=== PATIENT | male | born 1970 | race Caucasian/White ===

== ENCOUNTER 2023-09-04 08:04 | Emergency (ER) | payer BC, SELFPAY ==
[2023-09-04 09:30] LABS: Absolute Basophils 0.1 K/uL (0-0.5); Absolute Eosinophils 0.4 K/uL (0-0.5); Absolute Lymphocytes (CBC) 1.7 K/uL (0.7-4.9); Absolute Monocytes 0.7 K/uL (0.1-1.3); Absolute Neutrophil 4.8 K/uL (1.8-8.0); Basophils % 1.3 % (0-1.3); Eosinophils % 4.6 % (0-4.4); Hematocrit 43.2 % (39.6-49.0); Hemoglobin 14.6 g/dL (13.6-17.9); Lymphocytes % 22.5 % (15.3-44.8); MCH 30.9 pg (27.0-35.0); MCHC 33.8 g/dL (32.0-36.0); MCV 91.4 fL (80-100); MPV 8.4 fL (7.6-11.3); Monocytes % 8.9 % (3.3-12.3); Neutrophils % 62.7 % (41.7-73.7); Platelets 157 thou/uL (152-406); RBC Red Blood Cell Count 4.73 M/uL (4.33-5.43); Red Cell Distribution Width 14.1 % (12.1-15.2)
[2023-09-04 09:51] LABS: Albumin 3.2 g/dL (3.4-5.0); Albumin/Globulin Ratio 0.8 (1.1-1.8); Anion Gap 4.1 mEq/L (5.0-15.0); Bilirubin Direct 0.2 mg/dL (0-0.2); Bilirubin Indirect, Calculated 0.6 mg/dL (0.2-0.8); Bilirubin Total 0.8 mg/dL (0.2-1.0); Globulin 4.2 g/dL (2.3-3.5); Magnesium 1.9 mg/dL (1.6-2.4); Potassium 4.1 mEq/L (3.5-5.1); Protein, Total 7.4 g/dL (6.4-8.2); Troponin High Sensitivity 4.9 pg/mL (<58.9)
--- NOTE | 2023-09-04 10:46 | RAD REPORT ---
EXAM DESCRIPTION: RAD - Chest Pa And Lat (2 Views) - 09/04/2023 9:15 am CLINICAL HISTORY: CHEST PAIN COMPARISON: Chest Pa And Lat (2 Views) dated 11/25/2015; Chest Pa And Lat (2 Views) dated 11/24/2015; Chest Single View dated 11/23/2015 TECHNIQUE: PA and lateral views of the chest were obtained. FINDINGS: The lungs are clear with interval improvement of left basilar airspace opacity, and partia l improvement of basilar opacity on the right. Heart size is normal and central vasculature is within normal limits. No pneumothorax. Resolved left pleural effusion. Residual trace right pleural effusio n. No acute bony finding noted. IMPRESSION: Improving bilateral basilar findings as above.
--- NOTE | 2023-09-04 12:03 | RAD REPORT ---
EXAM DESCRIPTION: CT - Chest For Pe Angio - 09/04/2023 11:06 am CLINICAL HISTORY: CHEST PAIN COMPARISON: Chest For Pe Angio dated 11/23/2015 TECHNIQUE: Thin axial CT images of the chest were obtained following administration of 100 mL Isovue 370 IV contrast. Multiplanar reconstructions, and maximum intensity projection reconstructions were generated and reviewed. Exam utilizes a protocol for optimal evaluation of pulmonary arterial tree. All CT scans are performed using dose optimization technique as appropriate and may include automated exposure control or mA/KV adjustment according to patient size. FINDINGS: Pulmonary arteries are normal. No emboli or other suspicious finding. No acute or signific ant aorta findings. Bilateral basilar dependent subsegmental atelectatic changes. No mass or infiltrate in the lung paren chyma. No pleural thickening or pleural effusion. No pneumothorax. No abnormal mediastinal or hilar masses or lymphadenopathy seen. No chest wall mass or abnormal axill iary lymphadenopathy. IMPRESSION: No evidence of acute central pulmonary emboli. Negative CT scan of the chest for other significant findings.
--- NOTE | 2023-09-04 12:59 | EDPHYS ---
Physician Documentation [facility] Name: Jose Arthur Age: 52 yrs Sex: Male : 1970 Arrival Date: 09/04/2023 Time: 08:04 Bed 4 Private MD: ED Physician Charli Dalton HPI: 09/03 09:12 This 52 yrs old Male presents to ER via Ambulatory with complaints of Shortness Of ms3 Breath, Flank Pain. 09:12 52-year-old male with past medical history of hepatitis presents to the emergency ms3 department for right thoracic back pain that he rates a 6/10. Patient states the pain is worse with taking a deep breath. Patient states he previously had symptoms similar to this when he had pneumonia.. Historical: - Allergies: 08:18 Azithromycin; hb - Home Meds: 08:18 None [Active]; hb - PMHx: 08:18 Hepatitis; hb - PSHx: 08:18 Leg - Left; Ankle - Right; hb - Immunization history:: Adult Immunizations up to date. - Infectious Disease History:: Denies. - Social history:: Smoking status: Patient denies any tobacco usage or history of. ROS: 09:12 Constitutional: Negative for fever, and chills. Neck: Negative for injury, pain, and ms3 swelling, Cardiovascular: Negative for chest pain, and palpitations. 09:12 Respiratory: Positive for pleurisy, of the Right back, 09:12 Abdomen/GI: Negative for abdominal pain, nausea, vomiting, diarrhea, and constipation, ms3 MS/Extremity: Negative for injury and deformity, Skin: Negative for injury, rash, and discoloration, Exam: 09:12 Constitutional: This is a well developed, well nourished patient who is awake, alert, ms3 and in no acute distress. Head/Face: Normocephalic, atraumatic. Neck: Trachea midline, no cervical lymphadenopathy. Supple, full range of motion without nuchal rigidity, or vertebral point tenderness. No Meningismus. Chest/axilla: Normal chest wall appearance and motion. Nontender with no deformity. Cardiovascular: Regular rate and rhythm with a normal S1 and S2. No gallops, murmurs, or rubs. Normal PMI, no JVD. No pulse deficits. Respiratory: Lungs have equal breath sounds bilaterally, clear to auscultation and percussion. No rales, rhonchi or wheezes noted. No increased work of breathing, no retractions or nasal flaring. Abdomen/GI: Soft, non-tender, with normal bowel sounds. No distension or tympany. No guarding or rebound. No evidence of tenderness throughout. Skin: Warm, dry with normal turgor. Normal color with no rashes, no lesions, and no evidence of cellulitis. MS/ Extremity: Pulses equal, no cyanosis. Neurovascular intact. Full, normal range of motion. Neuro: Awake and alert, GCS 15, oriented to person, place, time, and situation. Cranial nerves II-XII grossly intact. Motor strength 5/5 in all extremities. Sensory grossly intact. Cerebellar exam normal. Normal gait. 09:18 ECG was reviewed by the Attending Physician. ms3 Vital Signs: 08:16 BP 146 / 95; Pulse 69; Resp 17; Temp 97.4(TE); Pulse Ox 96% on R/A; Weight 163.29 kg; hb Height 6 ft. 2 in. ; Pain 6/10; 09:07 BP 119 / 76; Pulse 67; Resp 18; Pulse Ox 97% on R/A; ld2 10:22 BP 114 / 77; Pulse 66; Resp 18; Pulse Ox 95% on R/A; ph 12:00 BP 118 / 78; Pulse 68; Resp 18; Temp 97.9; Pulse Ox 98% on R/A; ph 13:17 BP 115 / 72; Pulse 68; Resp 18; Temp 97.9; Pulse Ox 99% on R/A; ph 08:16 Body Mass Index 46.22 (163.29 kg, 187.96 cm) hb 08:16 Pain Scale: Adult hb [place]ala Coma Score: 09:07 Eye Response: spontaneous(4). Motor Response: obeys commands(6). Verbal Response: ld2 oriented(5). Total: 15. MDM: 08:35 Patient medically screened. ms3 09:12 Differential diagnosis: pneumonia, Pneumothorax Pulmonary Embolism. ms3 15:24 Data reviewed: vital signs, nurses notes, lab test result(s), EKG, radiologic studies, ms3 and as a result, I will discharge patient. Independent interpretation of the following test(s) in the Emergency Department EKG: See my EKG interpretation above property assessment monitor: rate is 70 beats/min, Rhythm is normal sinus rhythm, regular, with no ectopy, Interpretation: normal rate, normal rhythm. Counseling: I had a detailed discussion with the patient and/or guardian regarding the historical points, exam findings, and any diagnostic results supporting the discharge/admit diagnosis, lab results, radiology results, the need for outpatient follow up, to return to the emergency department if symptoms worsen or persist or if there are any questions or concerns that arise at home. ED course: Discussed labs, imaging with patient. Patient to follow-up with primary care physician in 2 to 3 days. Patient understands and agrees with plan. All questions were answered. Return precautions discussed include worsening symptoms, or any other concerns. On reevaluation patient is alert and oriented x 4, no apparent distress, nontoxic-appearing, ambulatory in the emergency department, speaking full sentences. 09/03 08:35 Order name: Basic Metabolic Panel; Complete Time: 10:21 ms3 09/03 08:35 Order name: CBC with Diff; Complete Time: 10:21 ms3 09/03 08:35 Order name: D-Dimer; Complete Time: 10:21 ms3 09/03 08:35 Order name: LFT's; Complete Time: 10:21 ms3 09/03 08:35 Order name: Magnesium; Complete Time: 10:21 ms3 09/03 08:35 Order name: Troponin HS; Complete Time: 10:21 ms3 09/03 09:34 Order name: Protime (+INR) EDMS 09/03 08:35 Order name: Chest Pa And Lat (2 Views) XRAY; Complete Time: 12:21 ms3 09/03 10:22 Order name: CT Chest For PE Angio; Complete Time: 12:21 ms3 09/03 08:35 Order name: Cardiac monitoring; Complete Time: 09:03 ms3 09/03 08:35 Order name: EKG - Nurse/Tech; Complete Time: 09:03 ms3 09/03 08:35 Order name: IV Saline Lock; Complete Time: 09:03 ms3 09/03 08:35 Order name: Labs collected and sent; Complete Time: 09:03 ms3 09/03 08:35 Order name: O2 Per Protocol; Complete Time: 09:03 ms3 09/03 08:35 Order name: O2 Sat Monitoring; Complete Time: 09:03 ms3 09/03 09:12 Order name: Labs - recollect needed: recollect all tubes; Complete Time: 09:25 bd EC:18 Rate is 66 beats/min. Rhythm is regular. QRS [place] is Normal. PA interval is normal. QRS ms3 interval is normal. QT interval is normal. Clinical impression: Normal ECG. Reviewed by me. Administered Medications: No medications were administered Disposition Summary: 09/04/23 12:58 Discharge Ordered Notes: Location: Home ms3 Condition: Stable ms3 Diagnosis - back pain ms3 Followup: ms3 - With: Sathya Figueroa DO - When: 2 - 3 days - Reason: Recheck today's complaints Discharge Instructions: - Discharge Summary Sheet ms3 - Acute Back Pain, Adult ms3 Forms: - Medication Reconciliation Form ms3 - Antibiotic Education ms3 - Prescription Opioid Use ms3 - Patient Portal Instructions ms3 - Leadership Thank You Letter ms3 Signatures: Dispatcher [employer] EDMS Zahra Morocho Heather, RN RN Charli Dalton DO DO ms3 Corrections: (The following items were deleted from the chart) 08:20 08:18 PSHx: Ankle - Right; hb hb 08:36 08:36 BASIC METABOLIC PANEL+C.LAB.BRZ ordered. EDMS EDMS 08:36 08:36 CBC+H.LAB.BRZ ordered. EDMS EDMS 08:36 08:36 D-DIMER+COAG.LAB.BRZ ordered. EDMS EDMS 08:36 08:36 HEPATIC FUNCTION+C.LAB.BRZ ordered. EDMS EDMS 08:36 08:36 MAGNESIUM+C.LAB.BRZ ordered. EDMS EDMS 08:36 08:36 Troponin High Sensitivity+C.LAB.BRZ ordered. EDMS EDMS 08:36 08:36 Chest Pa And Lat (2 Views)+RAD.RAD.BRZ ordered. EDMS EDMS 09:32 08:36 PROTIME (+INR)+COAG.LAB.BRZ ordered. EDMS EDMS
--- NOTE | 2023-09-04 12:59 | ER ---
Nurse's Notes [facility] Name: Jose Arthur Age: 52 yrs Sex: Male : 1970 Arrival Date: 09/04/2023 Time: 08:04 Bed 4 Private MD: Diagnosis: back pain Presentation: 09/03 08:16 Chief complaint: SOB and pain with breathing x 1 week. Denies cough/fever. Coronavirus hb screen: Client presents with at least one sign or symptom that may indicate coronavirus-19. Provider contacted for isolation considerations. Ebola Screen: No symptoms or risks identified at this time. Initial Sepsis Screen: Does the patient meet any 2 criteria? No. Patient's initial sepsis screen is negative. Does the patient have a suspected source of infection? No. Patient's initial sepsis screen is negative. Risk Assessment: Do you want to hurt yourself or someone else? Patient reports no desire to harm self or others. Onset of symptoms was August 28, 2023. 08:16 Method Of Arrival: Ambulatory 08:16 Acuity: JOSE 3 hb Triage Assessment: 08:19 General: Appears in no apparent distress. uncomfortable, Behavior is calm, cooperative. hb Pain: Pain currently is 6 out of 10 on a pain scale. at worst was 8 out of 10 on a pain scale. Neuro: Level of Consciousness is awake, alert, obeys commands, Oriented to person, place, time, situation. Cardiovascular: Patient's skin is warm and dry. Respiratory: Reports shortness of breath at rest pain with respiration Onset: The symptoms/episode began/occurred 1 week, the patient has moderate shortness of breath. Historical: - Allergies: 08:18 Azithromycin; hb - Home Meds: 08:18 None [Active]; hb - PMHx: 08:18 Hepatitis; hb - PSHx: 08:18 Leg - Left; Ankle - Right; hb - Immunization history:: Adult Immunizations up to date. - Infectious Disease History:: Denies. - Social history:: Smoking status: Patient denies any tobacco usage or history of. Screenin:04 [facility] ED Fall Risk Assessment (Adult) History of falling in the last 3 months, ld2 including since admission No falls in past 3 months (0 pts) Confusion or Disorientation No (0 pts) Intoxicated or Sedated No (0 pts) Impaired Gait No (0 pts) Mobility Assist Device Used No (0 pt) Altered Elimination No (0 pt) Score/Fall Risk Level 0 - 2 = Low Risk Oriented to surroundings, Maintained a safe environment, Educated pt \T\ family on fall prevention, incl call for assistance when getting out of bed, Assessed \T\ reinforced patient's understanding of fall precautions, Provided non-skid footwear, Hourly rounding (assess needs \T\ fall precautionary measures) done, Used ambulatory aids as needed (educated on \T\ assisted with), Used gait belt as appropriate. Abuse screen: Denies threats or abuse. Denies injuries from another. Nutritional screening: No deficits noted. Tuberculosis screening: No symptoms or risk factors identified. Assessment: 09:04 Pain: Complains of pain in chest Pain does not radiate. Pain Quality of pain is ld2 described as aching, pressure, Pain began 1 day ago. Also complains of shortness of breath. Neuro: Level of Consciousness is awake, alert, obeys commands, Oriented to person, place, time, situation, Medical Editor are equal bilaterally Facial symmetry appears normal. Cardiovascular: Reports chest pain, shortness of breath, Heart tones S1 S2 present Capillary refill < 3 seconds in bilateral fingers Chest pain Parent/caregiver reports patient has had chest pain, shortness of breath, since yesterday. Pt states doing house work and having SOB and pain with inspiration present to chest area since yesterday. Denies nausea, vomiting, dizziness. States last time similar symptoms occurred, pt had pneumonia. Respiratory: Airway is patent Trachea midline Respiratory effort is even, unlabored, Respiratory pattern is regular, symmetrical, Breath sounds are clear bilaterally. GI: No deficits noted. No signs and/or symptoms were reported involving the gastrointestinal system. Derm: No deficits noted. No signs and/or symptoms reported regarding the dermatologic system. Musculoskeletal: No deficits noted. No signs and/or symptoms reported regarding the musculoskeletal system. 10:21 Reassessment: Patient appears in no apparent distress at this time. Patient and/or ph family updated on plan of care and expected duration. Pain level reassessed. Patient is alert, oriented x 3, equal unlabored respirations, skin warm/dry/pink. Vital Signs: 08:16 BP 146 / 95; Pulse 69; Resp 17; Temp 97.4(TE); Pulse Ox 96% on R/A; Weight 163.29 kg; hb Height 6 ft. 2 in. ; Pain 6/10; 09:07 BP 119 / 76; Pulse 67; Resp 18; Pulse Ox 97% on R/A; ld2 10:22 BP 114 / 77; Pulse 66; Resp 18; Pulse Ox 95% on R/A; ph 12:00 BP 118 / 78; Pulse 68; Resp 18; Temp 97.9; Pulse Ox 98% on R/A; ph 13:17 BP 115 / 72; Pulse 68; Resp 18; Temp 97.9; Pulse Ox 99% on R/A; ph 08:16 Body Mass Index 46.22 (163.29 kg, 187.96 cm) hb 08:16 Pain Scale: Adult hb [place] Coma Score: 09:07 Eye Response: spontaneous(4). Motor Response: obeys commands(6). Verbal Response: ld2 oriented(5). Total: 15. ED Course: 08:05 Patient arrived in ED. im 08:16 Client placed on continuous cardiac and pulse oximetry monitoring. NIBP monitoring hb applied. electrodynamicist on. Pulse ox on. NIBP on. 08:18 Triage completed. hb 08:19 Charli Dalton DO is Attending Physician. ms3 08:19 Arm band placed on. hb 08:48 Laura Champagne, RN is Primary Nurse. ph 09:03 Basic Metabolic Panel Sent. ld2 09:03 CBC with Diff Sent. ld2 09:03 D-Dimer Sent. ld2 09:03 LFT's Sent. ld2 09:03 Magnesium Sent. ld2 09:03 Troponin HS Sent. ld2 09:04 Patient has correct armband on for positive identification. Allergy band placed. Placed ld2 in gown. Bed in low position. Call light in reach. Side rails up X 1. Adult w/ patient. Family accompanied patient. 09:04 Inserted saline lock: 20 gauge in right antecubital area, using aseptic technique. ld2 Blood collected. 09:06 Door closed. Noise minimized. Warm blanket given. Verbal reassurance given. ld2 09:17 Chest Pa And Lat (2 Views) XRAY In Process Unspecified. EDMS 11:07 CT Chest For PE Angio In Process Unspecified. EDMS 12:58 Sathya Figueroa DO is Referral Physician. ms3 13:14 No provider procedures requiring assistance completed. IV discontinued, intact, ph bleeding controlled, No redness/swelling at site. Pressure dressing applied. Administered Medications: No medications were administered Medication: 09:49 VIS not applicable for this client. ph Outcome: 12:58 Discharge ordered by MD. ms3 13:15 Discharged to home ambulatory, with significant other, ph 13:15 Condition: good 13:15 Discharge instructions given to patient, significant other, Instructed on discharge instructions, follow up and referral plans. Demonstrated understanding of instructions, follow-up care, 13:17 Patient left the ED. ph Signatures: Dispatcher [employer] EDMS Laura Champagne RN RN Shabnam Ivan RN RN Charli Dalton DO DO ms3 Radhika De Luna Lupe, RN RN ld2 Corrections: (The following items were deleted from the chart) 08:20 08:18 PSHx: Ankle - Right; hb hb 09:32 09:03 PROTIME (+INR)+COAG.LAB.BRZ drawn and sent. ld2 EDVT
[2023-09-04 13:58] VITALS: BP 115/72; TEMP 97.9; O2SAT 99
[2023-09-04 17:58] LABS: PT Prothrombin Time 12.4 SECONDS (9.5-12.5); Protime INR 1.1
--- NOTE | 2023-09-06 16:51 | EKG ---
Test Date: 2023-09-04 Test Time: 09:00:19 Runner Worker: PH MEASUREMENT RESULTS: Intervals: Rate: 66 [place]: 168 QRSD: 114 QT: 412 QTc: 431 [place]: P: 47 NJ: 168 QRS: 61 T: 32 INTERPRETIVE STATEMENTS: Normal sinus rhythm Normal ECG Compared to ECG 11/23/2015 05:40:06 No significant changes Electronically Signed On 09-06-23 16:44:18 CDT by Kishan Michael
== END 2023-09-04 13:17 | disposition home or self-care (01) ==
LOC: ER 08:04
DX: M54.9 Dorsalgia, unspecified (principal); Z88.1 Allergy status to other antibiotic agents
CPT/HCPCS: 93005; 85025; 80048; 36415; 83735; 85610; 85379; 80076; 84484; 71275; 71046; 99284; Q9967